=== PATIENT | female | born 1965 | race Caucasian/White ===

== ENCOUNTER 2019-02-25 06:00 | Day surgery (SDC) | payer OTHER ==
[~2019-02-25] VITALS: Ht 165.1 cm; Wt 108.9 kg
[2019-02-25] MEDS ORDERED: CEFAZOLIN SOD 1 GM in D5W 50 ML IV ONE (07:00)
[2019-02-25] MEDS ORDERED: acetaZOLAMIDE 250 MG TABLET (DIAMOX) PO ONE (08:30)
[2019-02-25] MEDS ORDERED: fentaNYL CITRATE/PF 100 MCG/2 ML AMP IVP ONE (08:30)
[2019-02-25] MEDS ORDERED: ONDANSETRON HCL 4 MG/2 ML VIAL IVP ONE (08:30)
[2019-02-25] MEDS ORDERED: NS 1000 ML IV.SOLN IV ONE (08:30)
[2019-02-25] MEDS ORDERED: NS IRRIG SOLN 1000 ML IR ONE (08:30)
[2019-02-25] MEDS ORDERED: SEVOFLURANE 15 MIN GAS INH ONE (08:30)
[2019-02-25] MEDS ORDERED: MIDAZOLAM HCL 5 MG/5 ML VIAL IVP ONE (08:30)
[2019-02-25] MEDS ORDERED: LR 1,000 ML IV SCH (09:02)
[2019-02-25] MEDS ORDERED: MORPHINE 4 MG/ML INJ. SYRINGE IVP PRN ×3 (09:15)
[2019-02-25] MEDS ORDERED: ONDANSETRON HCL 4 MG/2 ML VIAL IVP PRN (09:15)
[2019-02-25] MEDS ORDERED: METOCLOPRAMIDE HCL 10 MG/2 ML VIAL IVP PRN (09:15)
[2019-02-25 10:24] VITALS: BP_SYST 127
[2019-02-25] MEDS ORDERED: HYDROcodone/ACETAMIN 5-325 MG TAB (NORCO/ VICODIN) PO PRN (11:15)
== END 2019-02-25 10:45 | disposition home or self-care (01) ==
LOC: SDS 06:00 → SMU 06:00 → SDS 10:45
PROVIDERS: ATTEND Specialist
DX: N95.0 Postmenopausal bleeding (principal); N84.0 Polyp of corpus uteri; R39.89 Other symptoms and signs involving the genitourinary system; I10 Essential (primary) hypertension; E11.9 Type 2 diabetes mellitus without complications; E78.00 Pure hypercholesterolemia, unspecified; K21.9 Gastro-esophageal reflux disease without esophagitis; E66.01 Morbid (severe) obesity due to excess calories; Z98.890 Other specified postprocedural states; Z79.899 Other long term (current) drug therapy
CPT/HCPCS: 52000; 58558; 82962; 88305; J0690; J2250; J2405; J3010; J7030; J7060; J7120